=== PATIENT | female | born 1995 | race Two or more races ===

== ENCOUNTER 2016-11-02 08:05 | Emergency (ER) | payer OTHER ==
[~2016-11-02] VITALS: Ht 172.7 cm; Wt 84.2 kg
[~2016-11-02 08:05] MED LIST: AUGMENTIN875 MG PO; AURALGAN14.8 ML LEFT EAR; CIPRO HC OTIC S10 ML LEFT EAR; CLARITIN-D 121 EACH PO; IBUPROFEN800 MG PO; IRON325 MG PO; MACROBID100 MG PO; MAGIC MOUTHWASH1 ML MM; MOTRIN800 MG PO; NAPROSYN500 MG PO; NO HOME MEDS; NOHOMEMEDS; TESSALON PERLE100 MG PO; TESSALON200 MG PO; VENTOLIN HFA18 GM IH
[2016-11-02 10:08] LABS: EOSINOPHIL (%) 1.3 % (0-5); EOSINOPHIL COUNT 0.1 K/uL (0-0.3); HEMATOCRIT 37.3 % (36.0-46.0); IMMATURE GRANULOCYTE (%) 0.3 % (0.0-0.7); INSTRUMENT ABS NEUTROPHIL CT 4.8 K/uL; LYMPHOCYTE COUNT 2.5 K/uL (1.0-2.8); MCH 28.1 PG (29.0-34.0); MCHC 33.8 G/DL (30.0-36.0); MCV 83.3 FL (83-99); MEAN PLAT.VOLUME 10.3 uM^3 (9.5-12.4); MONOCYTE (%) 6.9 % (3-12); MONOCYTE COUNT 0.6 K/uL (0-0.8); NEUTROPHIL (%) 59.8 % (45-76); NEUTROPHIL COUNT 4.8 K/uL (1.8-6.4); PLATELET COUNT 243 K/uL (156-360); RBC DIS.WIDTH-CV 12.4 % (11.8-14.6); RBC DIS.WIDTH-SD 37.3 % (39-53); RED BLOOD COUNT 4.48 M/uL (3.80-5.20); WHITE BLOOD COUNT 7.9 K/uL (4.1-10.2)
[2016-11-02 10:22] LABS: D-DIMER ELISA 0.38 mg/L FEU (< 0.57)
[2016-11-02 10:28] LABS: CHLORIDE 107 mEq/L (99-109); POTASSIUM 3.8 mEq/L (3.7-5.4); SODIUM 140 mEq/L (136-147)
[2016-11-02 10:29] LABS: GLUCOSE 89 mg/dL (70-99)
[2016-11-02 10:31] LABS: ANION GAP 8 MEQ/L (2-14)
[2016-11-02 10:33] LABS: GFR ESTIMATE (CALCULATED) > 59 mL/min/
[2016-11-02 10:34] LABS: UREA NITROGEN (BUN) 8 mg/dL (9-23)
[2016-11-02 10:43] LABS: QUANTITATIVE HCG < 4.0 MIU/ML
[2016-11-02] MEDS ORDERED: FIORICET WI1 CAPSULE PO (11:08)
[2016-11-02 11:22] VITALS: BP 132/77
== END 2016-11-02 11:23 | disposition home or self-care (01) ==
LOC: EME 08:05
PROVIDERS: Emergency Medicine
DX: G43.909 Migraine, unspecified, not intractable, without status migrainosus (principal); R07.89 Other chest pain; F17.200 Nicotine dependence, unspecified, uncomplicated
CPT/HCPCS: 71020; 80048; 84702; 85025; 85379; 93005; 99281; 99285; J1885; J2765; J7030

== ENCOUNTER 2017-01-17 11:52 | Emergency (ER) | payer OTHER ==
[~2017-01-17] VITALS: Ht 172.7 cm; Wt 83.2 kg
[~2017-01-17 11:52] MED LIST changes: +FIORICET WI1 CAPSULE PO
[2017-01-17 13:09] LABS: ADD MIUA? YES; BILIRUBIN NEGATIVE; BLOOD NEGATIVE; COLOR YELLOW ((YELLOW)); GLUCOSE (STRIP) NEGATIVE; KETONES NEGATIVE; LEUKOCYTES LARGE; NITRITE NEGATIVE; PROTEIN (STRIP) NEGATIVE; SPECIFIC GRAVITY 1.015 (1.000-1.030); UROBILINOGEN 0.2 MG/DL (0.2-1.0)
[2017-01-17 13:12] LABS: BACTERIA RARE /HPF; EPITHELIAL CELLS 3+ /HPF; MUCUS TRACE /LPF; RED BLOOD CELLS 0-5 /HPF (0-5); UCUL ADDED? YES
[2017-01-17 13:44] LABS: HEMATOCRIT 38.7 % (36.0-46.0); MCH 27.6 PG (29.0-34.0); MCHC 33.3 G/DL (30.0-36.0); MCV 82.9 FL (83-99); MEAN PLAT.VOLUME 10.2 uM^3 (9.5-12.4); PLATELET COUNT 222 K/uL (156-360); RBC DIS.WIDTH-CV 12.9 % (11.8-14.6); RBC DIS.WIDTH-SD 38.9 % (39-53); RED BLOOD COUNT 4.67 M/uL (3.80-5.20); WHITE BLOOD COUNT 8.1 K/uL (4.1-10.2)
[2017-01-17 13:50] LABS: CHLORIDE 108 mEq/L (99-109); POTASSIUM 3.7 mEq/L (3.7-5.4); SODIUM 141 mEq/L (136-147)
[2017-01-17 13:52] LABS: GLUCOSE 110 mg/dL (70-99)
[2017-01-17 13:54] LABS: ANION GAP 9 MEQ/L (2-14); TOTAL BILIRUBIN 0.5 mg/dL (0.0-1.0)
[2017-01-17 13:56] LABS: ALKALINE PHOSPHATASE 53 IU/L (3-129); GFR ESTIMATE (CALCULATED) > 59 mL/min/
[2017-01-17 13:57] LABS: UREA NITROGEN (BUN) 9 mg/dL (9-23)
[2017-01-17 14:05] LABS: QUANTITATIVE HCG < 4.0 MIU/ML
[2017-01-17 14:36] LABS: C-REACTIVE PROTEIN 11.8 MG/L (0-10)
[2017-01-17 15:42] VITALS: BP 120/71
== END 2017-01-17 15:44 | disposition home or self-care (01) ==
LOC: EME 11:52
PROVIDERS: Nurse Practitioner Family
DX: M25.552 Pain in left hip (principal); M25.551 Pain in right hip; R10.9 Unspecified abdominal pain; R79.82 Elevated C-reactive protein (CRP); M54.5 Low back pain; F17.200 Nicotine dependence, unspecified, uncomplicated
CPT/HCPCS: 72100; 80053; 81003; 84702; 85027; 86140; 87086; J1885

== ENCOUNTER 2017-01-20 15:36 | Emergency (ER) | payer OTHER ==
[~2017-01-20] VITALS: Ht 172.7 cm; Wt 84.1 kg
[2017-01-20] MEDS ORDERED: PREDNISONE50 MG PO (17:30)
[2017-01-20] MEDS ORDERED: NORCO 5/3251 TABLET PO (17:30)
[2017-01-20] MEDS ORDERED: MOTRIN600 MG PO (17:30)
[2017-01-20 18:06] VITALS: BP 121/73
== END 2017-01-20 18:07 | disposition home or self-care (01) ==
LOC: EME 15:36
DX: M54.16 Radiculopathy, lumbar region (principal)
CPT/HCPCS: 72131; 99281; 99282